=== PATIENT | male | born 2000 | race Caucasian/White ===

== ENCOUNTER → 2021-09-30 | Emergency (ER) | payer MEDICAID ==
[~2021-09-30] VITALS: Ht 180.3 cm; Wt 96.8 kg
[2021-09-30 10:37] VITALS: BP 147/77
== END | disposition home or self-care (01) ==
LOC: ER 18:31
DX: J02.9 Acute pharyngitis, unspecified (principal); B34.9 Viral infection, unspecified; R50.9 Fever, unspecified
CPT/HCPCS: 87081; 87880; 99283